=== PATIENT | male | born 2000 | race Caucasian/White ===

== ENCOUNTER 2021-10-22 01:05 | Emergency (ER) | payer MEDICAID, OTHER ==
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
[2021-10-22] MEDS ORDERED: LIDOCAINE/EPI 2% 1:100,00 (XYLOCAINE) 20 ML VIAL INJ ONE (01:30)
[2021-10-22] MEDS ORDERED: LIDOCAINE/EPI 2% 1:200,00 (XYLOCAINE) 20 ML VIAL ONE (01:31)
[2021-10-22] MEDS ORDERED: IBUPROFEN 600 MG (MOTRIN) TAB PO ONE ×2 (02:14→02:15)
[2021-10-22 02:18] VITALS: BP 123/76
== END 2021-10-22 02:23 | disposition home or self-care (01) ==
LOC: ER FS 01:10
DX: S06.0X1A Concussion with loss of consciousness of 30 minutes or less, initial encounter (principal); W18.09XA Striking against other object with subsequent fall, initial encounter
CPT/HCPCS: 12011